=== PATIENT | female | born 1945 | race Caucasian/White ===

== ENCOUNTER 2020-04-06 12:25 | Emergency (ER) | payer OTHER, SELFPAY ==
[~2020-04-06 12:25] MED LIST: 24HOUR ALLERGY10 MG PO; ASPIRIN EC81 MG PO; COLESTIPOL HCL1 GM PO; DOXYCYCLINE HY100 M2 PO; IBUPROFEN200 MG PO; IMITREX50 M1 PO; KEFLEX250 MG PO; MEDROL 4MG DOSEP4 MG PO; METOPROLOL PO; MYSOLINE50 MG PO; NITROFURANTOIN100 MG PO; NORCO 5-325 TA1 EACH PO; PREDNISONE 20MG20 MG PO; PRINIVIL20 MG PO; SINGULAIR10 MG PO; SYNTHROID100 MCG PO; VITAMIN D1000 UNI1 PO
[2020-04-06 13:07] LABS: BASOPHIL 1.3 % (0-2); EOSINOPHIL 2.3 % (0-7); HCT 41.6 % (37.0-47.0); HGB 14.1 g/dl (12.5-16.0); LYMPHOCYTE 37.1 % (15-48); MCH 31.6 pg (25.0-31.0); MCHC 33.9 g/dL (32.0-36.0); MCV 93.3 fL (78.0-100.0); MONOCYTE 6.5 % (0-12); MPV 9.3 fL (6.0-9.5); NEUTROPHIL 52.7 % (41-80); NRBC 0; PLT 228 K/uL (150-400); RBC 4.46 M/uL (4.20-5.40); RDW 13.2 % (11.5-14.0); WBC 7.1 K/uL (4.0-10.5)
[2020-04-06 13:31] LABS: INR 1.12 (0.9-1.2); PROTHROMBIN TIME 13.7 SECONDS (11.4-13.6); PTT 32.8 SECONDS (22.2-34.7)
[2020-04-06 13:56] LABS: BUN/CREAT RATIO (CALC) 20.2 RATIO; CREATININE 0.99 mg/dL (0.51-0.95)
== END 2020-04-06 16:13 | disposition home or self-care (01) ==
LOC: FER 12:25
PROVIDERS: Emergency Medicine
DX: G45.9 Transient cerebral ischemic attack, unspecified (principal); I10 Essential (primary) hypertension; E11.9 Type 2 diabetes mellitus without complications; J44.9 Chronic obstructive pulmonary disease, unspecified; Z87.891 Personal history of nicotine dependence; Z88.0 Allergy status to penicillin; Z88.8 Allergy status to other drugs, medicaments and biological substances; Z88.1 Allergy status to other antibiotic agents; Z91.041 Radiographic dye allergy status; Z88.6 Allergy status to analgesic agent
CPT/HCPCS: 36415; 70547; 70551; 80048; 85025; 85610; 85730; 93005